=== PATIENT | male | born 1945 | race Caucasian/White ===

== ENCOUNTER 2019-01-01 19:30 | Outpatient (CLI) | payer MEDICARE, OTHER | END 2019-01-01 19:31 | disposition home or self-care (01) | LOC: SLEEPLAB 19:30 | PROVIDERS: ATTEND Family Medicine | DX: G47.33 Obstructive sleep apnea (adult) (pediatric) (principal); G25.81 Restless legs syndrome; G47.61 Periodic limb movement disorder; R53.83 Other fatigue; G47.00 Insomnia, unspecified; E66.9 Obesity, unspecified; I50.9 Heart failure, unspecified; I25.2 Old myocardial infarction; I25.10 Atherosclerotic heart disease of native coronary artery without angina pectoris; E11.9 Type 2 diabetes mellitus without complications | CPT/HCPCS: 95811 ==

== ENCOUNTER 2019-01-16 19:30 | Outpatient (CLI) | payer MEDICARE, OTHER | END 2019-01-16 19:31 | disposition home or self-care (01) | LOC: SLEEPLAB 19:30 | PROVIDERS: ATTEND Family Medicine | DX: G47.33 Obstructive sleep apnea (adult) (pediatric) (principal); G25.81 Restless legs syndrome; G47.61 Periodic limb movement disorder; G47.9 Sleep disorder, unspecified; I50.9 Heart failure, unspecified; I21.9 Acute myocardial infarction, unspecified; I25.10 Atherosclerotic heart disease of native coronary artery without angina pectoris; E11.9 Type 2 diabetes mellitus without complications | CPT/HCPCS: 95811 ==